=== PATIENT | male | born 1960 | race African-American/Black ===

== ENCOUNTER → 2017-01-01 | Outpatient (CLI) | payer BC ==
[~2017-01-01] MED LIST: CELEXA20 MG PO; WELLBUTRIN SR150 MG PO
[2017-01-04 00:42] LABS: PSA, FREE 0.42 ng/mL (())
== END | disposition home or self-care (01) ==
LOC: CLAB 16:15
PROVIDERS: Urology
DX: N41.0 Acute prostatitis (principal); N40.0 Benign prostatic hyperplasia without lower urinary tract symptoms
CPT/HCPCS: 36415; 84153; 84154